=== PATIENT | male | born 1960 | race Caucasian/White ===

== ENCOUNTER 2018-08-24 20:00 | Emergency (ER) | payer OTHER, SELFPAY ==
[2018-08-24 20:07] VITALS: BP 135/86; PULSE 68; RESP 20; TEMP 36; O2SAT 100
--- NOTE | 2018-08-24 20:39 | DI.RAD.S_ITS ---
PROCEDURE: XR CHEST 1V INDICATIONS: chest pain TECHNIQUE: One view of the chest was acquired. COMPARISON: None. FINDINGS: Surgical changes and devices: None. Lungs and pleura: No pleural effusions or pneumothorax. Lungs are clear. Mediastinum: Mediastinal contours appear normal. Heart size is normal. Bones and chest wall: No suspicious bony lesions. Overlying soft tissues appear unremarkable. IMPRESSION: No acute cardiopulmonary disease. Dictated by: Fabián Ziegler M.D. on 08/24/2018 at 20:58 Approved by: Fabián Ziegler M.D. on 08/24/2018 at 20:59
--- NOTE | 2018-08-24 20:42 | ED_ITS ---
HPI - Syncope General Chief Complaint: Syncope Stated Complaint: PASSED OUT Time Seen by Provider: 08/24/18 20:42 Source: patient and family Mode of arrival: ambulatory Limitations: no limitations History of Present Illness HPI narrative: 58-year-old male, nonsmoker presents with his for evaluation of a brief syncopal episode earlier today. He was sitting at the dinner table when he nodded off and was unresponsive for approaching 1 min. He had become pale and clammy during the episode. On exam patient is completely asymptomatic and has felt that way for quite some time. He states he very rarely gets much in the way of sleep has been under a lot of stress. He states that he had approximately 4 glasses of wine in the 2 hr leading up to his episode. Additionally he had a few strong coffees and very little food or water. He had just walked to the bathroom and back, perhaps a few minutes before his syncopal episode. He denies any new medications, recent travel or exposure to ill persons. He states that he felt the symptoms coming on and that he was lightheaded and nauseated and developed tunnel vision. There was a period of time in the aftermath that he still did not feel all that well. There were no tonic-clonic shaking movements MD complaint: loss of consciousness Onset (ago): hour(s) -: second(s) Prodromal symptoms: vision changes and lightheaded Injuries sustained associated with event: none Current symptoms: none and back to baseline Treatments prior to arrival: none Related Data Allergies Allergy/AdvReac Type Severity Reaction Status Date / Time No Known Drug Allergies Allergy Verified 08/24/18 20:06 Review of Systems Constitutional Denies chills, Denies fever(s), Denies lethargy and Denies weakness Eyes Denies change in vision, Denies eye discharge, Denies irritation and Denies loss of vision ENT Ears, Nose, Mouth, and Throat: Denies change in voice, Denies neck pain and Denies sore throat Cardiovascular Denies chest pain, Reports syncope, Denies irregular heart rhythm, Denies lightheadedness, Denies palpitations, Denies dyspnea, Denies dyspnea on exertion and Denies orthopnea Respiratory Denies cough, Denies dyspnea, Denies dyspnea on exertion and Denies wheezing Gastrointestinal Gastrointestinal: Denies abdominal pain, Denies change in bowel habits, Denies diarrhea, Denies nausea and Denies vomiting Genitourinary Denies hematuria, Denies flank pain, Denies urinary incontinence and Denies urinary urgency Musculoskeletal Denies neck pain Integumentary/Breasts Denies pruritus, Denies erythema, Denies rash and Denies wounds Neurologic Denies confusion, Reports syncope, Denies loss of vision and Denies weakness Psychiatric Denies anxiety, Denies confusion, Denies depression, Denies homicidal ideation and Denies suicidal ideation Endocrine Denies palpitations Hematologic/Lymphatic Denies easy bruising Allergic/Immunologic Denies wheezing REPLACED BY [facility] Social History Smoking Status: Never smoker Exam Narrative Exam Narrative: GENERAL: This is a well-nourished, well-developed patient, in mild distress. HEAD: Atraumatic. Normocephalic. No temporal or scalp tenderness. EYES: Pupils equal round and reactive. Extraocular motions intact. No scleral icterus. No injection or drainage. ENT: Nose without bleeding, purulent drainage or septal hematoma. Throat without erythema, tonsillar hypertrophy or exudate. Uvula midline. Airway patent. NECK: Trachea midline. No JVD or lymphadenopathy. Supple, nontender, no meningeal signs. CARDIOVASCULAR: Regular rate and rhythm without murmurs, gallops, or rubs. RESPIRATORY: Clear to auscultation. Breath sounds equal bilaterally. No wheezes , rales, or rhonchi. GASTROINTESTINAL: Abdomen soft, non-tender, nondistended. No hepato-splenomegaly , or palpable masses. No guarding. EXTREMITIES: No clubbing, cyanosis, or edema. No joint tenderness, effusion, or edema noted. BACK: Nontender without deformity or crepitance. No flank tenderness. NEURO: AOx3. SKIN: No rash or erythema. Initial Vital Signs Initial Vital Signs: Vital Signs Temperature 96.8 F L 08/24/18 20:07 Pulse Rate 68 08/24/18 20:07 Respiratory Rate 20 08/24/18 20:07 Blood Pressure 135/86 08/24/18 20:07 Pulse Oximetry 100 08/24/18 20:07 Course Orders Ordered: ED Orders 08/24/18 20:17 EKG-12 Lead Stat 08/24/18 20:39 XR chest 1V Stat 08/24/18 20:42 Complete Blood Count AUTO DIFF Stat Comprehensive Metabolic Panel Stat Lipase Stat Partial Thromboplastin Time Stat Prothrombin Time INR Stat Troponin & CK Cardiac Panel Stat Vital Signs - 8 hr 08/24/18 20:07 08/24/18 21:25 08/24/18 21:55 Temperature 96.8 F L Pulse Rate 68 69 Pulse Rate [Orthostatic Lying] 66 Pulse Rate [Orthostatic Sitting] 85 Pulse Rate [Orthostatic Standing] 78 Respiratory Rate 20 16 Blood Pressure 135/86 Blood Pressure [Left Arm] 139/83 Blood Pressure [Orthostatic Lying] 117/78 Blood Pressure [Orthostatic Sitting] 117/77 Blood Pressure [Orthostatic Standing] 109/74 Pulse Oximetry 100 98 08/24/18 22:00 Temperature Pulse Rate 73 Pulse Rate [Orthostatic Lying] Pulse Rate [Orthostatic Sitting] Pulse Rate [Orthostatic Standing] Respiratory Rate 19 Blood Pressure 109/74 Blood Pressure [Left Arm] Blood Pressure [Orthostatic Lying] Blood Pressure [Orthostatic Sitting] Blood Pressure [Orthostatic Standing] Pulse Oximetry 98 MDM - Syncope Differential Diagnosis Likely syncope due to orthostatic hypotension, vasovagal syncope, complete atrioventricular block, subarachnoid hemorrhage, pulmonary embolism and dehydration Lab Data Result diagrams: 08/24/18 20:42 08/24/18 20:42 Lab Results 08/24/18 08/24/18 08/24/18 Range/Units 20:42 20:42 20:42 WBC 5.5 (4.5-11.0) X10^3/uL RBC 4.78 (4.5-5.9) X10^6/uL Hgb 14.8 (13.5-17.5) g/dL Hct 43.8 (41-53) % MCV 91.7 (80-100) fL MCH 31.1 (26-34) PG MCHC 33.9 (30-36) % RDW 13.5 (11.6-14.8) % Plt Count 196 (150-400) X10^3/uL Neut % (Auto) 66.7 (50-75) % Lymph % (Auto) 24.4 L (25-40) % [place] % (Auto) 7.3 (3-14) % Eos % (Auto) 0.9 L (2-4) % Baso % (Auto) 0.7 (0-2) % Neut # (Auto) 3700 (5173-5006) /uL PT 12.8 H (10.1-12.7) SECONDS INR 1.1 (0.9-1.3) APTT 26 L (26.4-36.2) SECONDS Sodium 140 (137-145) mmol/L Potassium 4.3 (3.4-5.1) mmol/L Chloride 102 (98-107) mmol/L Carbon Dioxide 27 (22-32) mmol/L BUN 16 (9-20) mg/dL Creatinine 1.00 (0.66-1.25) mg/dL Estimated GFR > 60.0 (>60) mL/min BUN/Creatinine Ratio 16.0 (6-22) Glucose 131 H (70-100) mg/dL Calcium 9.1 (8.4-10.2) mg/dL Total Bilirubin 0.4 (0.2-1.3) mg/dL AST 25 (17-59) IU/L ALT 32 (21-72) IU/L Alkaline Phosphatase 54 (38-126) U/L Total Creatine Kinase 112 (55-170) U/L CK-MB (CK-2) 1.18 (<2.37) ng/mL CK-MB (CK-2) Rel Index 1.1 L (1.5-5.0) % Troponin I < 0.012 (0.01-0.034) ng/mL Total Protein 7.6 (6.3-8.2) g/dL Albumin 4.5 (3.5-5.0) g/dL Globulin 3.1 (1.7-4.1) g/dL Albumin/Globulin Ratio 1.5 (1.0-2.8) Lipase 202 (23-300) U/L MDM Narrative Medical decision making narrative: Multiple etiologies of syncope considered including pulmonary embolism which is less likely given lack of chest pain, shortness of breath or ongoing symptoms. Additionally tachy arrhythmia is considered but thought less likely given development of prodromal symptoms and lack of current symptoms. Subarachnoid hemorrhage considered but thought less likely given headache or other focal neurologic findings. Discharge Plan Departure Patient Disposition: Home Clinical Impression: Syncope Discharge Date/Time: 08/24/18 22:00 Interventions: ED Discharge Assessment Last Done: 08/24/18 22:00 Instructions: DI for Syncope in Adults (Fainting) Activity Restrictions/Additional Instructions: *You have been diagnosed with [ syncope (fainting) ] *What to do: *Continue to take medications as directed *Follow up with your primary care provider in 2-3 days, call for an appointment. Let them know you were seen in the Emergency Department and that we ask that you be seen in follow up *Return to ER if you should have any new, worsening or concerning symptoms Referrals: Erica Dias MD [Primary Care Provider] -
[2018-08-24 20:46] LABS: Add Manual Diff / Slide Review NO; Basophils Percent Auto 0.7 % (0-2); Eosinophils Percent Auto 0.9 % (2-4); Hematocrit 43.8 % (41-53); Hemoglobin 14.8 g/dL (13.5-17.5); Lymphocytes Percent Auto 24.4 % (25-40); Mean Corpuscular HGB Conc 33.9 % (30-36); Mean Corpuscular Hemoglobin 31.1 PG (26-34); Mean Corpuscular Volume 91.7 fL (80-100); Monocytes Percent Auto 7.3 % (3-14); Neutrophils Absolute Auto 3700 /uL (1500-7000); Neutrophils Percent Auto 66.7 % (50-75); Platelet Count 196 X10^3/uL (150-400); Red Blood Cell Count 4.78 X10^6/uL (4.5-5.9); Red Cell Distribution Width 13.5 % (11.6-14.8); White Blood Cell Count 5.5 X10^3/uL (4.5-11.0)
[2018-08-24 20:49] LABS: INR 1.1 (0.9-1.3); Prothrombin Time 12.8 SECONDS (10.1-12.7)
[2018-08-24 20:51] LABS: PTT Partial Thromboplastin Tim 26 SECONDS (26.4-36.2)
[2018-08-24 20:53] LABS: Alanine Aminotransferase 32 IU/L (21-72); Albumin 4.5 g/dL (3.5-5.0); Albumin Globulin Ratio 1.5 (1.0-2.8); Alkaline Phosphatase 54 U/L (38-126); Aspartate Aminotransferase 25 IU/L (17-59); Bilirubin Total 0.4 mg/dL (0.2-1.3); Blood Urea Nitrogen 16 mg/dL (9-20); Calcium 9.1 mg/dL (8.4-10.2); Carbon Dioxide 27 mmol/L (22-32); Chloride 102 mmol/L (98-107); Creatine Kinase 112 U/L (55-170); Estimated Glomerular Filt Rate > 60.0 mL/min (>60); Globulin 3.1 g/dL (1.7-4.1); Glucose 131 mg/dL (70-100); HEMOLYSIS < 15 (0-50); Lipase 202 U/L (23-300); Potassium 4.3 mmol/L (3.4-5.1); Sodium 140 mmol/L (137-145); Total Protein 7.6 g/dL (6.3-8.2)
[2018-08-24 21:08] LABS: CKMB % Relative Index 1.1 % (1.5-5.0); Creatine Kinase MB 1.18 ng/mL (<2.37)
[2018-08-24 21:13] LABS: Troponin I < 0.012 ng/mL (0.01-0.034)
[2018-08-24 21:25] VITALS: BP 139/83; PULSE 69; RESP 16; O2SAT 98
[2018-08-24 21:55] VITALS: BP 109/74; BP 117/77; BP 117/78; PULSE 66; PULSE 78; PULSE 85
[2018-08-24 22:00] VITALS: BP 109/74; PULSE 73; RESP 19; O2SAT 98
== END 2018-08-24 22:00 | disposition home or self-care (01) ==
PROVIDERS: Emergency Provider Emergency Medicine; Family Provider Internal Medicine; PCP Internal Medicine
DX: R55 Syncope and collapse (principal)
CPT/HCPCS: 36591; 71045; 80053; 82550; 82553; 83690; 84484; 85025; 85610; 85730; 93005; 99283; 99285